=== PATIENT | male | born 1975 | race Hispanic/Latino ===

== ENCOUNTER 2022-03-15 12:44 | Outpatient (CLI) | payer BC | END 2022-03-15 12:45 | disposition home or self-care (01) | LOC: CSHCT 12:44 | PROVIDERS: ATTEND Family Medicine Sports Medicine | DX: E78.5 Hyperlipidemia, unspecified (principal) | CPT/HCPCS: 75571 ==

== ENCOUNTER 2022-06-21 08:25 | Outpatient (CLI) | payer BC | END 2022-06-21 08:26 | disposition home or self-care (01) | LOC: CSHULT 08:25 | PROVIDERS: ATTEND Family Medicine Sports Medicine | DX: R10.11 Right upper quadrant pain (principal); K82.4 Cholesterolosis of gallbladder | CPT/HCPCS: 76700 ==

== ENCOUNTER 2022-12-26 13:34 | Outpatient (CLI) | payer BC ==
[2022-12-26] MEDS ORDERED: Iopamidol 300 61% 100 ML VIAL FS ONE (15:26)
== END 2022-12-26 13:35 | disposition home or self-care (01) ==
LOC: CSHCT 13:34
PROVIDERS: ATTEND Family Medicine Sports Medicine
DX: R10.31 Right lower quadrant pain (principal); K76.89 Other specified diseases of liver
CPT/HCPCS: 74177; Q9967